=== PATIENT | female | born 1970 | race Hispanic/Latino ===

== ENCOUNTER 2018-12-29 19:41 | Emergency (ER) | payer BC ==
[2018-12-29] MEDS ORDERED: Sodium Chloride 0.9% 1,000 ML ONE (19:56)
[2018-12-29 20:09] LABS: #Lymphocytes 0.9 thou/uL (1.20-3.40); #Monocytes 0.4 thou/uL (0.11-0.59); #Neutrophils 5.8 thou/uL (1.40-6.50); %Basophils 0.5 % (0.0-1.0); %Lymphocytes 12.3 % (21.0-51.0); %Monocytes 6.1 % (0.0-10.0); Bilirubin Negative (Negative); Blood, Urine Small (Negative); Glucose, Urine (Dipstick) Negative (Negative); Hemoglobin 12.7 g/dL (12.0-16.0); Leukocyte Large (Negative); Mean Corpuscular HGB CONC 35.3 g/dL (32.0-36.0); Mean Corpuscular Hemoglobin 31.8 pg (27.0-31.0); Nitrite Negative (Negative); Platelet Count 195 thou/uL (130-400); Protein, Urine (Dipstick) Trace mg/dL (Neg-Trace); RBC Distribution Width 10.4 % (11.5-14.5); White Blood Cell (WBC) Count 7.2 thou/uL (4.8-10.8)
[2018-12-29 20:10] LABS: Clarity Hazy (Clear)
[2018-12-29 20:17] LABS: RBC/HPF 0-3 HPF (0-3); Squamous Epithelial 0-3 HPF (0-3); WBC/HPF Greater Than 50 HPF (0-3)
[2018-12-29 20:18] LABS: Bacteria/HPF 2+ HPF (None Seen)
[2018-12-29 20:46] LABS: ALT (SGPT) 30 U/L (8-55); AST (SGOT) 23 U/L (5-34); Albumin 4.1 g/dL (3.5-5.0); Alkaline Phosphatase 63 U/L (40-110); Anion Gap 15 mmol/L (10-20); BUN (Urea Nitrogen) 9 mg/dL (7.0-18.7); Bilirubin, Total 0.4 mg/dL (0.2-1.2); Calc. Creatinine Clearance 0 mL/min (70-130); Carbon Dioxide 20 mmol/L (22-29); Chloride 104 mmol/L (98-107); Estimated GFR-MDRD 66; Globulin 3.5 g/dL (2.4-3.5); Glucose 120 mg/dL (70-105); Lipase 13 U/L (8-78); Potassium 3.6 mmol/L (3.5-5.1); Protein, Total 7.6 g/dL (6.0-8.3); Sodium 135 mmol/L (136-145)
--- NOTE | 2018-12-29 20:53 | CT ---
Exam: Abdomen CT without contrast Pelvic CT without contrast HISTORY: Kidney infection, fever x2-3 days. COMPARISON: None FINDINGS: Abdomen CT: Lung bases:Clear Heart size: Normal size Aorta: Normal caliber Solid organs: Limited evaluation due to lack of IV contrast. Hepatic steatosis is noted. No acute ha id organ abnormality Lymph nodes: No gastrohepatic, retrocrural or periportal lymphadenopathy Gallbladder: Contracted, likely due to a nonfasting state Mesentery: No mass, lymphadenopathy, free air or free fluid Kidneys: Bilaterally, no hydronephrosis, nephrolithiasis or perinephric fat stranding. Bilateral uret ers have a normal caliber. No hydroureter, periureteral fat stranding or ureterolithiasis. Bilateral extrarenal pelvises are noted. Alimentary canal: Limited evaluation due to lack of oral contrast. No evidence of small bowel obstruc tion. Unremarkable ileocecal junction. 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 Caliber appendix. Unremarkable colon. Diverticulosis, without evidence of diverticul itis.. CT PELVIS: No mass, adenopathy, free air or free fluid. Surgically absent uterus. Urinary bladder: Mild urinary bladder wall thickening may be due to inadequate distention versus cyst itis. Osseous structures: No lytic or blastic lesions IMPRESSION: 1. No evidence of nephrolithiasis or obstructive uropathy 2. Diverticulosis. 3. Mild urinary bladder wall thickening may be due to inadequate distention versus cystitis. Nonemerg ent cystoscopy if clinically warranted.
== END 2018-12-29 21:35 | disposition home or self-care (01) ==
LOC: NAV ERS 19:41
DX: N12 Tubulo-interstitial nephritis, not specified as acute or chronic (principal)
CPT/HCPCS: 74176; 80053; 81003; 81015; 83605; 83690; 85025; 87040; 87086; J7050